=== PATIENT | male | born 1965 | race Caucasian/White ===

== ENCOUNTER → 2016-12-21 | Outpatient (CLI) | payer OTHER ==
--- NOTE | 2016-12-21 17:48 | EKG ---
Date Performed: 12/21/2016 Time Performed: 10:47:22 PTAGE: 51 years EKG: SINUS BRADYCARDIA WITH SINUS ARRHYTHMIA BORDERLINE ECG NO PREVIOUS TRACING DOCTOR: Lyubov Jimenez Interpretating Date/Time 12/21/2016 17:46:06
== END ==
LOC: HCAV 10:40
PROVIDERS: ATTEND Orthopaedic Surgery
DX: G56.02 Carpal tunnel syndrome, left upper limb (principal); R00.1 Bradycardia, unspecified
CPT/HCPCS: 93005

== ENCOUNTER → 2017-01-07 | Day surgery (SDC) | payer OTHER ==
[~2017-01-07] VITALS: Ht 180.3 cm; Wt 102.0 kg
[~2017-01-07] MED LIST: APREPITANT 40 MG CAP ONE; ASPI-516 CHEW; CHLORHEXIDINE GLUCONATE 2 % 1 PACK (2 CLOTHS) TOPICAL PRN; CHLORHEXIDINE GLUCONATE 4% SOLN 120 ML BTL TOPICAL SCH; DICL75TA PO; KETOROLAC TROMETHAMINE 30 MG/ML (IVP) VIAL ONE; LACTATED RINGER'S 1000 ML IV PRN; METOPROLOL TARTRATE 25 MG TAB PO PRN; MORPHINE SULFATE 2 MG/ML INJ ONE; PANT40TA3 PO; POVIDONE IODINE 5% (ANTISEPSIS KIT) 4 APPLICATIONS EACH NARE PRN; SIMV10TA PO; SODIUM CHLORID 0.9% 500 ML IV PRN; XANA1TAB2 PO
[2017-01-07 13:20] VITALS: PULSE 56
[2017-01-07 14:50] VITALS: BP 104/50; PULSE 52; RESP 16; TEMP 98.7; O2SAT 99
--- NOTE | 2017-01-07 20:17 | MP ---
cc: AZ RAGSDALE MD DATE OF SURGERY 01/07/[address] Raad Ragsdale PREOPERATIVE DIAGNOSIS Left carpal tunnel syndrome. POSTOPERATIVE DIAGNOSIS Left carpal tunnel syndrome. PROCEDURE Left carpal tunnel release. PROCEDURE IN DETAIL The patient was placed on the operating room stretcher in the supine position and the left hand and forearm were prepped and draped in the usual sterile fashion after general anesthetic was administered. An Esmarch bandage was used and applied to the left upper extremity and a pneumatic tourniquet was inflated to 250. A time-out had been called and the patient's name, procedure, location, etc., were fully confirmed. A curved incision was made and taken down through the subcutaneous tissues across the carpal tunnel. Using sharp and blunt dissection, it was carried down to the transverse carpal ligament which was extremely tight at the wrist and was incised with a sharp scissor followed by sharp and blunt scissors. It was transected longitudinally exposing the underlying, flattened and median nerve which was intact. The release was carried out until no longer compressed. The nerve was inspected and remained intact. It was then irrigated with normal saline solution. The skin edges were then reapproximated with interrupted simple sutures of 4-0 nylon. Xeroform gauze was applied followed by application of a bulky hand dressing. Tourniquet was deflated and examination of the fingers revealed adequate return of circulation. Sponge count, needle counts and instrument counts were reportedly correct x2. The estimated blood loss was nil. The procedure was tolerated well and the patient was transferred to the recovery room in satisfactory condition. Az Ragsdale MD [facility]/ /1:23 PM /8:10 PM
== END | disposition home or self-care (01) ==
LOC: PHSDC 10:18
PROVIDERS: ATTEND Orthopaedic Surgery
DX: G56.02 Carpal tunnel syndrome, left upper limb (principal)
CPT/HCPCS: 01810; 64721; J1885; J2270; J7120; J8501